=== PATIENT | male | born 1970 | race Caucasian/White ===

== ENCOUNTER 2016-08-14 23:04 | Emergency (ER) | payer OTHER ==
[2016-08-14] MEDS ORDERED: SODIUM CHLORIDE 0.9% 1,000 ML IV STA ×2 (23:06)
[2016-08-14 23:14] VITALS: RESP 20; TEMP 98.7
[2016-08-14] MEDS ORDERED: RX INFO: IV CONTRAST WAS GIVEN 1 EACH MISC MISCELLANE PRN (23:14)
--- NOTE | 2016-08-14 23:14 | ED ---
Altered Mental Status HPI - General Stated Complaint: Possible CVA Time Seen by Provider: 08/14/16 23:04 Source: patient, EMS, RN notes reviewed Mode of arrival: EMS - History of Present Illness Initial Comments: This is a possibly 40-year-old male with unknown past medical history was brought in by EMS because of altered mental status. The paramedics were able to get the patient that he woke up around 9:45 PM he is been working night shifts apparently all week. He was found on the floor by paramedics Left side stated he could not control his right side. He apparently did demonstrate expressive aphasia. No reports of fevers chills nausea vomiting sweats a history very limited. Patient is unable to state what his birthday was he stated it was 2003 when asked. Per paramedics she was able move all of his extremities once again that apparently have good control the right upper extremity. His blood glucose level III pressure 175/113 initially MD Complaint: altered mental status - Related Data Allergies Allergy/AdvReac Type Severity Reaction Status Date / Time No Known Allergies Allergy Verified 08/14/16 23:14 Review of Systems ROS Statement: Those systems with pertinent positive or pertinent negative responses have been documented in the HPI. ROS Other: All systems not noted in ROS Statement are negative. Limitations: ROS unobtainable due to patients medical condition General Exam - General Exam Comments Initial Comments: This is a well-developed well-nourished awake alert but confused male Limitations: altered mental status, physical limitation General appearance: alert, in no apparent distress Head exam: Present: atraumatic, normocephalic, normal inspection Eye exam: Present: normal appearance, PERRL, EOMI. Absent: scleral icterus, conjunctival injection, periorbital swelling ENT exam: Present: normal exam, mucous membranes moist Neck exam: Present: normal inspection. Absent: tenderness, meningismus, lymphadenopathy Respiratory exam: Present: normal lung sounds bilaterally. Absent: respiratory distress, wheezes, rales, rhonchi, stridor Cardiovascular Exam: Present: regular rate, normal rhythm, normal heart sounds. Absent: systolic murmur, diastolic murmur, rubs, gallop, clicks GI/Abdominal exam: Present: soft, normal bowel sounds. Absent: distended, tenderness, guarding, rebound, rigid Rectal exam: Present: deferred Extremities exam: Present: normal inspection, normal capillary refill. Absent: tenderness, pedal edema, joint swelling, calf tenderness Back exam: Present: normal inspection Neurological exam: Present: alert, altered, CN II-XII intact, reflexes normal, other (Patient does demonstrate A stroke scale 13 please see the paper copy.). Absent: motor sensory deficit Psychiatric exam: Present: anxious Skin exam: Present: warm, intact, normal color, diaphoretic Course Vital Signs 08/14/16 23:04 Temperature 98.7 F Pulse Rate 77 Respiratory 20 Rate Blood Pressure 185/90 O2 Sat by Pulse 98 Oximetry - Reevaluation(s) Reevaluation #1: 08/14/16 23:44 Patient returned from CAT scan with no changes. His initial NIH stroke score is 13. Dr. Jacques is in the process of evaluating patient in the CAT scans. Reevaluation #2: 08/14/16 23:45 TPA was recommended. Reevaluation #3: 08/14/16 23:57 I did discuss the findings with radiologist no acute findings on noncontrast CT Reevaluation #4: 08/14/16 23:59 Patient is very anxious and will require IV Ativan. Medical Decision Making - Medical Decision Making The patient has gotten TPA. I did discuss the case with the neuro interventional is. I also discussed the case with the accepting physician at [facility] , the patient will be transferred via EMS. - Lab Data Result diagrams: 08/14/16 23:08 08/14/16 23:08 Lab Results 08/14/16 08/14/16 08/14/16 Range/Units 23:08 23:08 23:08 WBC 6.1 (3.8-10.6) k/uL RBC 5.35 (4.30-5.90) m/uL Hgb 15.7 (13.0-17.5) gm/dL Hct 47.1 (39.0-53.0) % MCV 88.1 (80.0-100.0) fL MCH 29.4 (25.0-35.0) pg MCHC 33.4 (31.0-37.0) g/dL RDW 13.8 (11.5-15.5) % Plt Count 216 (150-450) k/uL Neutrophils % 55 % Lymphocytes % 33 % Monocytes % 7 % Eosinophils % 3 % Basophils % 1 % Neutrophils # 3.3 (1.3-7.7) k/uL Lymphocytes # 2.0 (1.0-4.8) k/uL Monocytes # 0.4 (0-1.0) k/uL Eosinophils # 0.2 (0-0.7) k/uL Basophils # 0.1 (0-0.2) k/uL PT 10.5 (9.0-12.0) sec INR 1.0 (<1.1) APTT 23.5 (22.0-30.0) sec Sodium 138 (137-145) mmol/L Potassium 4.0 (3.5-5.1) mmol/L Chloride 103 (98-107) mmol/L Carbon Dioxide 26 (22-30) mmol/L Anion Gap 9 mmol/L BUN 17 (9-20) mg/dL Creatinine 0.96 (0.66-1.25) mg/dL Est GFR (MDRD) Af Amer >60 (>60 ml/min/1.73 sqM) Est GFR (MDRD) Non-Af >60 (>60 ml/min/1.73 sqM) Glucose 108 H (74-99) mg/dL Calcium 9.1 (8.4-10.2) mg/dL Total Bilirubin 0.8 (0.2-1.3) mg/dL AST 44 (17-59) U/L ALT 68 (21-72) U/L Alkaline Phosphatase 76 (38-126) U/L Total Protein 7.1 (6.3-8.2) g/dL Albumin 4.3 (3.5-5.0) g/dL - EKG Data -: EKG Interpreted by Ok EKG shows normal: sinus rhythm, axis, intervals, QRS complexes, ST-T waves (EKG shows normal sinus rhythm of 69 appear 158 QRS 96 QT/QTC 404/432 this is a normal-appearing EKG.) Rate: normal - Radiology Data Radiology results: report reviewed (I did review the imaging and reports x-rays negative for acute findings CAT scan shows no acute findings this time.), image reviewed Critical Care Time Critical Care Time: Yes Critical Care Time: Critical care time of 47 minutes which includes monitoring initially EMS run and discussed with paramedics. History physical labs x-rays. Discussion with the neuro interventional is discussed with the radiologist discussion with the receiving physician. Discussed with the patient family members. Documentation the above. Disposition Clinical Impression: Cerebrovascular accident Disposition: OTHER INSTITUTION NOT DEFINED Condition: Serious Referrals: None,Stated [Primary Care Provider] - 1-2 days - Out of Hospital Transfer - Req. Specs Out of Hospital Transfer - Requested Specifics: Other Emergency Center
[2016-08-14 23:20] LABS: Basophils # (A) 0.1 k/uL (0-0.2); Basophils % (A) 1 %; CH 30.9; CHCM 35.2; Eosinophils # (A) 0.2 k/uL (0-0.7); Eosinophils % (A) 3 %; HCT 47.1 % (39.0-53.0); HDW 2.77; HGB 15.7 gm/dL (13.0-17.5); Luc # (Auto) 0.12; Luc % (Auto) 2; Lymphocytes % (A) 33 %; MCH 29.4 pg (25.0-35.0); MCHC 33.4 g/dL (31.0-37.0); MCV 88.1 fL (80.0-100.0); Mean Platelet Volume 5.9; Monocytes # (A) 0.4 k/uL (0-1.0); Monocytes % (A) 7 %; Neutrophils # (A) 3.3 k/uL (1.3-7.7); Neutrophils % (A) 55 %; RBC 5.35 m/uL (4.30-5.90); RDW 13.8 % (11.5-15.5); WBC 6.1 k/uL (3.8-10.6); WBC (Perox) 5.78
--- NOTE | 2016-08-14 23:25 | CT ---
INDICATION: Neuro deficits, stroke code TECHNIQUE: Helical CT acquisition is performed from the posterior fossa to the cranial vault. Sagittal and coronal reformatted images provided. No IV contrast is administered. DOSE INFORMATION: CTDIvol 57.40 mGy; DLP 102.90 mGy-cm. This CT exam was performed using one or more of the following dose reduction techniques: automated exposure control, adjustment of the mA and/or kV according to patient size, and/or use of iterative reconstruction technique. COMPARISON: None. FINDINGS: There is no evidence of acute intracranial hemorrhage or abnormal extra-axial fluid collection. There is no mass effect or midline shift. Sulci, ventricles, and basal cisterns are normal in size and configuration. The whiting-white matter differentiation appears preserved. There is no evidence of skull fracture. The visualized paranasal sinuses and mastoid air cells are clear. IMPRESSION: 1. No CT evidence of acute intracranial process, although CT is insensitive for early cerebral ischemia. Consider MRI for further evaluation as clinically indicated. [employer] 08/14/16 23:33 Call From [facility] Dr. Randy see 08/14 23:30 (-04:00)
[2016-08-14] MEDS ORDERED: tPA (Alteplase) PER PHARMACY 1 EACH MISC MISCELLANE PRN (23:26)
[2016-08-14 23:28] LABS: Partial Thromboplastin Time 23.5 sec (22.0-30.0); Prothrombin Time 10.5 sec (9.0-12.0)
[2016-08-14 23:29] LABS: ALT 68 U/L (21-72); AST 44 U/L (17-59); Alkaline Phosphatase 76 U/L (38-126); Anion Gap 9 mmol/L; Blood Urea Nitrogen 17 mg/dL (9-20); Calcium 9.1 mg/dL (8.4-10.2); Carbon Dioxide 26 mmol/L (22-30); Chloride 103 mmol/L (98-107); Glucose 108 mg/dL (74-99); Non-African American GFR(MDRD) >60 (>60 ml/min/1.73 sqM); Sodium 138 mmol/L (137-145); Total Bilirubin 0.8 mg/dL (0.2-1.3); Total Protein 7.1 g/dL (6.3-8.2)
[2016-08-14] MEDS ORDERED: ALTEPLASE BOLUS 1 MG/1 ML SYRINGE IV STA (23:29)
[2016-08-14] MEDS ORDERED: ALTEPLASE IV STA (23:29)
--- NOTE | 2016-08-14 23:46 | CT ---
INDICATION: Expressive aphasia, right upper extremity weakness, stroke code TECHNIQUE: Helical CT acquisition is performed through the head and neck following the administration of IV contrast. Multiplanar reformatted images including multiplanar MIP reconstructions are provided. DOSE INFORMATION: CTDIvol 401.20 mGy; DLP 432.90 mGy-cm. This CT exam was performed using one or more of the following dose reduction techniques: automated exposure control, adjustment of the mA and/or kV according to patient size, and/or use of iterative reconstruction technique. COMPARISON: CT head without contrast 08/14/16 FINDINGS: CTA head: The bilateral intracranial vertebral arteries are patent with dominant left vertebral artery. The basilar artery and right P1 segments are patent. The left P1 segment is absent, with origin of the left [employer] via a left posterior kidney indicating artery. The bilateral intracranial vertebral arteries are patent. The bilateral M1 and A1 segments are patent. There is no evidence of aneurysm or vascular malformation. The major intracranial veins and dural venous sinuses are patent. CTA neck: Bilateral common carotid arteries are patent and normal in caliber. There is mild calcific atherosclerotic plaque at the left carotid bifurcation without significant vessel narrowing. The bilateral cervical internal carotid arteries are patent and normal in caliber. The bilateral cervical vertebral arteries are patent and normal in caliber. The lung apices are clear. There is no osseous or soft tissue abnormality of the neck. IMPRESSION: Normal CTA of the head and neck.
--- NOTE | 2016-08-14 23:47 | XR ---
INDICATION: Altered mental status COMPARISON: None. FINDINGS: Single frontal view demonstrates a normal cardiomediastinal silhouette. The lungs are clear. No pleural effusion or pneumothorax. The visualized osseous structures are within normal limits. IMPRESSION: No radiographic evidence of acute cardiopulmonary disease.
[2016-08-14] MEDS ORDERED: LORazepam 2 MG/ML SYRINGE IV STA (23:59)
[2016-08-15 00:03] LABS: Creatine Kinase 194 U/L (55-170)
[2016-08-15 00:16] LABS: Troponin I <0.012 ng/mL (0.000-0.034)
[2016-08-15 00:24] LABS: Creatine Kinase MB 2.8 ng/mL (0.0-2.4)
[2016-08-15 01:21] VITALS: BP 180/123; PULSE 83
[2016-08-15 05:50] LABS: Glucose,Whole Blood 115 mg/dL (75-99)
== END 2016-08-15 01:18 | disposition other institution (70) ==
LOC: EC 23:04
DX: I63.9 Cerebral infarction, unspecified (principal); R40.2142 Coma scale, eyes open, spontaneous, at arrival to emergency department; R40.2242 Coma scale, best verbal response, confused conversation, at arrival to emergency department; R40.2362 Coma scale, best motor response, obeys commands, at arrival to emergency department
CPT/HCPCS: 36415; 93005; 80053; 82140; 82550; 82553; 83605; 83735; 84484; 85025; 85610; 85730; 71010; 70496; 70450; 70498; 99291; 96365; 96367; 96375; 96376; J2997; J2060; Q9967